=== PATIENT | male | born 1960 | race Caucasian/White ===

== ENCOUNTER 2020-09-11 12:21 | Inpatient (IN) | payer MEDICARE, OTHER ==
[~2020-09-11] VITALS: Ht 177.8 cm; Wt 69.9 kg
--- NOTE | 2020-09-11 12:30 | NUR ---
THE PATIENT IS BIB PA FROM [facility] PRIOR TO GPS ADMISSION. THE PATIENT IS ALERT AND ORIENTED TO SELF. DENIES PAIN. IN ROOM AIR AND DENIES SOB. RESPIRATION REGULAR AND UNLABORED. THE PATIENT CAME WITH A HOLD DANGER TO SELF AND GD. SAFETY MEAUSRES TAKEN. WILL CONTINUE TO MONITOR THE PATIENT.
--- NOTE | 2020-09-11 12:43 | NUR ---
ROOM 215-2
[2020-09-11 12:45] LABS: BASOPHILS # (AUTO) 0.1 K/uL (0.0-0.2); BASOPHILS % (AUTO) 0.5 % (0.0-2.0); EOSINOPHILS % (AUTO) 1.9 % (0.0-6.0); HEMATOCRIT 41 % (39-51); HEMOGLOBIN 13.3 g/dL (13.5-17.5); LYMPHOCYTES # (AUTO) 2.6 K/uL (0.8-4.8); LYMPHOCYTES % (AUTO) 22.3 % (20.0-44.0); MEAN CORPUSCULAR HGB CONC 33 g/dl (31.0-36.0); MEAN CORPUSCULAR VOLUME 95 fL (80-96); MONOCYTES # (AUTO) 0.7 K/uL (0.1-1.30); MONOCYTES % (AUTO) 6.1 % (2.0-12.0); NEUTROPHILS # (AUTO) 8.1 K/uL (1.8-8.9); NEUTROPHILS % (AUTO) 69.2 % (43.0-81.0); PLATELET COUNT (AUTO) 448 K/uL (150-450); RED BLOOD CELL COUNT(AUTO) 4.31 MIL/uL (4.5-6.0); WHITE BLOOD COUNT (AUTO) 11.7 K/uL (4.3-11.0)
[2020-09-11 12:51] LABS: CALCIUM, SERUM 8.8 mg/dL (8.5-10.1); CARBON DIOXIDE 31 mmol/L (21-32); CHLORIDE 102 mmol/L (98-107); CREATININE 0.8 mg/dL (0.6-1.3); GLUCOSE 106 mg/dL (74-106); POTASSIUM 4.4 mmol/L (3.5-5.1); SODIUM SERUM 138 mmol/L (136-145); UREA NITROGEN, BLOOD 15 mg/dL (7-18)
[2020-09-11 12:57] LABS: ACETAMINOPHEN 0 ug/ml (10-30); ALANINE AMINOTRANSFERASE 34 U/L (12-78); ALBUMIN 3.2 g/dL (3.4-5.0); ALCOHOL, BLOOD < 3 mg/dL (0-0); ALKALINE PHOSPHATASE 59 U/L (46-116); ASPARTATE AMINOTRANSFERASE 19 U/L (15-37); BILIRUBIN,TOTAL 0.1 mg/dL (0.2-1.0); TOTAL PROTEIN, SERUM 7.1 g/dL (6.4-8.2)
[2020-09-11] MEDS ORDERED: OLANZAPINE 10 MG VIAL IM ONE ×2 (12:58→13:00)
--- NOTE | 2020-09-11 13:09 | NUR ---
URINE COLLECTED AND SENT TO THE LAB
[2020-09-11] MEDS ORDERED: OLAN5TAB3 PO (13:33)
[2020-09-11] MEDS ORDERED: OLAN15TA3 PO (13:33)
[2020-09-11] MEDS ORDERED: DIVA500T2 PO ×2 (13:33)
[2020-09-11 13:36] LABS: BILIRUBIN,URINE Negative (NEGATIVE); COLOR,URINE YELLOW (YELLOW); LEUKOCYTE ESTERASE ,URINE Negative (NEGATIVE); NITRITE, URINE Negative (NEGATIVE); PH,URINE 7.5 (5.0-8.0); PROTEIN,URINE Negative (NEGATIVE); UGLUCOSE Negative (NEGATIVE); UROBILINOGEN,URINE 0.2 EU/dL (0.2)
[2020-09-11 13:38] LABS: BACTERIA,URINE Rare /HPF (None Seen); RBC,URINE 0-2 /HPF (0-2); SQUAMOUS EPITHELIAL CELL,UR Rare /HPF (None Seen); WBC,URINE 0-2 /HPF (0-3)
--- NOTE | 2020-09-11 14:20 | NUR ---
REPORT GIVEN TO NURSE ISABEL
[2020-09-11] MEDS ORDERED: NA P133E RC (15:00)
[2020-09-11] MEDS ORDERED: BISA10SU11 RC (15:00)
[2020-09-11] MEDS ORDERED: DOCU-141 PO (15:00)
[2020-09-11] MEDS ORDERED: ACET325T53 PO (15:00)
[2020-09-11] MEDS ORDERED: RISP2TAB85 PO (15:00)
[2020-09-11] MEDS ORDERED: MAGN400O6 PO (15:00)
[2020-09-11] MEDS ORDERED: OXCA600T8 PO (15:00)
--- NOTE | 2020-09-11 15:02 | NUR ---
THE PATIENT IS TRANSFERED TO GPS IN STABLE CONDITION AND PER POLICY.
--- NOTE | 2020-09-11 15:30 | NUR ---
GPS ADMISSION NOTE: RECEIVED MALE FROM [facility] TO [facility]. PATIENT ARRIVED ON THIS UNIT AT 1500 WITH 2 EMT ESCORT. 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 THE 5150 WAS REVIEWED AND THE DOCUMENTATION IN THE 5150 HOLD APPEARS TO REFLECT THE PRESENTATION OF THE PATIENT. UPON FACE TO FACE ASSESSMENT PATIENT IS A/OX2, HAS NO S/S OR COMPLAINTS OF PAIN. PATIENT BREATHING IS UNLABORED WITH EQUAL RISE AND FALL OF THE CHEST, VSS. PATIENT UNPREDICTABLE, EASILY AGITATED, COMBATIVE TOWARD STAFF,UNABLE TO CONTROL BEHAVIOR . PATIENT DISHEVELED, UNKEPT REFUSED TO SHOWER . PATIENT IS NOTED TO BEING DELUSIONAL, DISORGANIZED, TALKING TO SELF , AGGRESSIVE . PATIENT DENIES SUICIDE IDEATIONS AND HOMICIDAL IDEATIONS AT THIS TIME. PATIENT IS UNDER THE PSYCHIATRIC CARE OF DR. NORMAN AND THE MEDICAL CARE OF DR POZO PATIENT BELONGINGS WERE INVENTORIED AND CHECKED FOR CONTRABAND. PATIENT ADVANCED DIRECTIVES PREFERENCE, IMMUNIZATIONS QUESTIONER COMPLETED. SKIN ASSESSMENT DONE , PICTURE PLACED IN THE CHART WOUND CONSULT ORDERED .PATIENTS RIGHTS HANDBOOK, AND ALSO REFUSED TO SIGNS ALL PAPER WORK. MRSA DONE PATIENT ORIENTATED TO ROOM, FLOOR, AND STAFF WITH ALL QUESTIONS ANSWERED. PATIENT EDUCATED ON THE USE OF THE CALL VELAZQUEZ. PATIENT BED SIDE RAILS ARE UP X 2 FOR SAFETY. PATIENT BED IS LOCKED, LOW AND I WILL CONTINUE TO MONITOR THIS PATIENT Q 15 MIN WITH THE HELP OF STAFF TO MAINTAIN SAFETY.
[2020-09-11] MEDS ORDERED: OLANZAPINE 10 MG VIAL IM STA (15:54)
[2020-09-11 16:00] VITALS: BP 120/70
[2020-09-11] MEDS ORDERED: ACETAMINOPHEN 325 MG TABLET PO PRN (16:00)
[2020-09-11] MEDS ORDERED: MAG HYDROX/AL HYDROX/SIMETH 30 ML UDC PO PRN (16:00)
[2020-09-11] MEDS ORDERED: TEMAZEPAM 7.5 MG CAPSULE PO PRN ×2 (16:00)
[2020-09-11] MEDS ORDERED: BLOOD SUGAR DIAGNOSTIC 1 EACH STRIP IN ONE (16:00)
[2020-09-11] MEDS ORDERED: LORAZEPAM 0.5 MG TABLET PO PRN ×2 (16:00)
[2020-09-11] MEDS ORDERED: MAGNESIUM HYDROXIDE 30 ML UDC PO PRN (16:00)
--- NOTE | 2020-09-11 16:04 | NUR ---
RN NOTE- PT POSTURING, PUNCHING AT THE AIR, MAKING FISTS AT OTHER OPTS AND STAFF. DR NORMAN ORDERED ZYPREXA 10 MG IM STAT. COMPLIED Addendum: 09/11/20 at 1610 by MAAME SÁNCHEZ RN PT AGREED TO EMERGENCY ZYPREXA IM . COMPLIED W ADMINISTRATION
[2020-09-11 16:36] VITALS: BP 120/70
--- NOTE | 2020-09-11 17:37 | NUR ---
RN NOTE- PT PUNCHING AT AIR POSTURING YELLING AND BEING DISRUPTIVE. PT PSYCHOTIC. ATIVAN [address] NORMAN AWARE.
--- NOTE | 2020-09-11 17:39 | NUR ---
RN NOTE- DR NORMAN PLACING PT ON 1:1 STAFFING FOR ESCALATING AGGRESSION AND UNPREDICTABLE BEHAVIOR AND PROPENSITY TO VIOLENCE. HOUSE SUP NOTIFIED. PT IN BED IN ROOM. MONITORING
--- NOTE | 2020-09-11 18:38 | NUR ---
RN NOTE- INTERACTING W PT ON 1:1 WITH THIS RN. PT CALMER. NOTED THAT PT SEEMS CALMER WITH ATTENTION AND COMPANY/ INTERACTION BUT ONCE DISENGAGED, PT BEGINS TO BE INTERNALLY PREOCCUPIED AND RESPONDING. PT GETS AGITATED. HOUSE SUP STATED NO 1:1 STAFFING AVAILABLE. WE MOVED PT TO ROOM BY HIMSELF BESIDE NURSING STATION. PSYCHIATRIST NOTIFIED OF STAFFING AND ROOM CHANGE
[2020-09-11 20:17] VITALS: BP 140/80
[2020-09-12 07:32] LABS: ALBUMIN 3.2 g/dL (3.4-5.0); BILIRUBIN,TOTAL 0.2 mg/dL (0.2-1.0); CALCIUM, SERUM 8.9 mg/dL (8.5-10.1); CREATININE 0.6 mg/dL (0.6-1.3); POTASSIUM 4.2 mmol/L (3.5-5.1); TOTAL PROTEIN, SERUM 7.1 g/dL (6.4-8.2)
[2020-09-12 07:33] LABS: CHOLESTEROL 161 mg/dL (<200); HDL CHOLESTEROL 46 mg/dL (40-60); LDL 96 mg/dL (0-99); TRIGLYCERIDES 70 mg/dL (30-150)
[2020-09-12 08:00] VITALS: BP 120/73
--- NOTE | 2020-09-12 09:00 | NUR ---
RN NOTE - Ativan given PRN for anxiety and agitation, sitter is with patient.
[2020-09-12] MEDS: LORAZEPAM 0.5 MG TABLET PO PRN (09:04)
[2020-09-12] MEDS ORDERED: NA PHOS,M-B/NA PHOS,DI-BA 1 EA ENEMA RC PRN (14:00)
[2020-09-12] MEDS ORDERED: BISACODYL SUPP (10 MG) 10 MG/SUPP.RECT SUPP.RECT RC PRN (14:00)
[2020-09-12] MEDS ORDERED: DIVALPROEX SODIUM 500 MG TABLET.DR PO SCH ×2 (14:00→22:00)
[2020-09-12] MEDS ORDERED: MAGNESIUM HYDROXIDE 30 ML UDC PO PRN (14:00)
[2020-09-12] MEDS ORDERED: ACETAMINOPHEN 325 MG TABLET PO PRN (14:00)
--- NOTE | 2020-09-12 14:34 | NUR ---
RN NOTE - Per Dr. Russo, do not give depakote to patient d/t history of adverse rxn.
[2020-09-12] MEDS: OXCARBAZEPINE 150 MG TABLET PO SCH (14:53)
[2020-09-12] MEDS: OLANZAPINE 10 MG TABLET PO SCH (14:53)
--- NOTE | 2020-09-12 15:34 | NUR ---
Pt. is calm and cooperative at this time. Pt. seen by Dr. Russo and compliant on meds, 1:1 order discontinued.
[2020-09-12 16:00] VITALS: BP 105/59
[2020-09-12] MEDS ORDERED: OLANZAPINE 10 MG TABLET PO SCH (17:00)
[2020-09-12] MEDS ORDERED: OXCARBAZEPINE 150 MG TABLET PO SCH (17:00)
[2020-09-12 20:56] VITALS: BP 109/58
[2020-09-12] MEDS: DOCUSATE SODIUM 100 MG CAPSULE PO SCH (21:00)
--- NOTE | 2020-09-12 21:03 | NUR ---
GPS RN NOTES PATIENT REFUSED COLACE AT THIS TIME.
--- NOTE | 2020-09-13 06:15 | NUR ---
GPS RN CLOSING NOTE PATIENT IN BED, A/OX3. PATIENT CHANGED INTO HIS OWN CLOTHES. NO S/S OF DISTRESS. NO C/O PAIN NADER. ALL NEEDS ATTENDED. AMBULATES BY HIMSELF. SAFETY KEPT THE WHOLE SHIFT. DID NOT REPORT ANY SUICIDAL IDEATION OR HOMICIDAL IDEATION. NO SIGNIFICANT CHANGE SINCE LAST SHIFT. WILL ENDORSE CARE TO MORNING RN.
[2020-09-13] MEDS: LORAZEPAM 0.5 MG TABLET PO PRN (06:23)
--- NOTE | 2020-09-13 06:25 | NUR ---
GPS RN NOTES PATIENT PACING AROUND. GIVEN ATIVAN PRN.
[2020-09-13] MEDS: OLANZAPINE 10 MG TABLET PO SCH ×3 (07:39→16:50)
[2020-09-13] MEDS: DOCUSATE SODIUM 100 MG CAPSULE PO SCH ×2 (07:39→20:13)
[2020-09-13] MEDS: OXCARBAZEPINE 150 MG TABLET PO SCH ×3 (07:40→16:50)
[2020-09-13 08:00] VITALS: BP 120/61
[2020-09-13] MEDS ORDERED: INVEGA SUSTENNA 234 MG IM ONE (10:00)
[2020-09-13 16:00] VITALS: BP 99/63
--- NOTE | 2020-09-13 20:00 | NUR ---
RN NOTES ALERT/ORIENTED X3, ROOM AIR, DENIES PAIN AT THIS TIME, WITHDRAWN, IRRITABLE, INDEPENDENT WITH ADLS, AMBULATORY, WILL CONTINUE TO MONITOR.
[2020-09-13 20:54] VITALS: BP 116/72
[2020-09-14 08:00] VITALS: BP 110/70
[2020-09-14] MEDS: DOCUSATE SODIUM 100 MG CAPSULE PO SCH ×2 (08:16→21:04)
[2020-09-14] MEDS: OXCARBAZEPINE 150 MG TABLET PO SCH ×3 (08:16→17:33)
[2020-09-14] MEDS: OLANZAPINE 10 MG TABLET PO SCH ×3 (08:17→17:33)
[2020-09-14 16:00] VITALS: BP 115/59
[2020-09-14 20:27] VITALS: BP 103/58
[2020-09-15 08:00] VITALS: BP 105/68
[2020-09-15] MEDS: DOCUSATE SODIUM 100 MG CAPSULE PO SCH ×2 (08:23→21:40)
[2020-09-15] MEDS: OLANZAPINE 10 MG TABLET PO SCH ×3 (08:23→16:03)
[2020-09-15] MEDS: OXCARBAZEPINE 150 MG TABLET PO SCH ×3 (08:23→16:03)
[2020-09-15 16:00] VITALS: BP 114/41
[2020-09-15 20:15] VITALS: BP 108/55
[2020-09-15 21:01] VITALS: BP 108/55
[2020-09-16 08:00] VITALS: BP 157/70
[2020-09-16] MEDS: OLANZAPINE 10 MG TABLET PO SCH ×3 (08:39→16:25)
[2020-09-16] MEDS: OXCARBAZEPINE 150 MG TABLET PO SCH ×3 (08:39→16:25)
[2020-09-16] MEDS: DOCUSATE SODIUM 100 MG CAPSULE PO SCH ×2 (08:39→21:22)
--- NOTE | 2020-09-16 09:00 | NUR ---
RN NOTE- ALERT ORIENTED TO PERSON PLACE, MED COMPLIANT RAMBLING SPEECH DIRECTABLE PACES
[2020-09-16 16:00] VITALS: BP 137/77
--- NOTE | 2020-09-16 19:56 | NUR ---
RN NOTE PATIENT C/O HEADACHE 05/22 & REQUESTED TO TAKE PAIN MEDICINE. PRN TYLENOL 650 MG PO ADMINISTERED. WILL CONTINUE TO MONITOR.
[2020-09-16 20:20] VITALS: BP 108/58
[2020-09-17 08:00] VITALS: BP 137/76
[2020-09-17] MEDS: OXCARBAZEPINE 150 MG TABLET PO SCH ×3 (08:13→17:20)
[2020-09-17] MEDS: DOCUSATE SODIUM 100 MG CAPSULE PO SCH ×2 (08:13→22:07)
[2020-09-17] MEDS: OLANZAPINE 10 MG TABLET PO SCH ×2 (08:13→17:20)
--- NOTE | 2020-09-17 09:00 | NUR ---
RN NOTE- PACING HALLS MUMBLING TO SELF, ALERT ORIENTED TO PERSON PLACE,DISORGANIZED MED COMPLIANT RAMBLING SPEECH DIRECTABLE
[2020-09-17] MEDS: LORAZEPAM 0.5 MG TABLET PO PRN (14:35)
--- NOTE | 2020-09-17 14:35 | NUR ---
RN NOTE- ANXIOUS, RESTLESSNESS PRESENT . ATIVAN 1 MG GIVEN
--- NOTE | 2020-09-17 14:45 | NUR ---
Probable Cause Hearing: Pts [phone] hold was upheld for grave disability.
[2020-09-17 16:00] VITALS: BP 152/79
[2020-09-17 20:27] VITALS: BP 133/76
[2020-09-18 08:00] VITALS: BP 128/59
[2020-09-18] MEDS: OLANZAPINE 10 MG TABLET PO SCH ×2 (09:16→18:18)
[2020-09-18] MEDS: DOCUSATE SODIUM 100 MG CAPSULE PO SCH ×2 (09:16→21:11)
[2020-09-18] MEDS: OXCARBAZEPINE 150 MG TABLET PO SCH ×3 (09:16→17:00)
--- NOTE | 2020-09-18 10:22 | NUR ---
Initial discharge plan: Pt is currently homeless and is unsure of where he would like to go upon discharge. SW will work with the pt and the MD regarding appropriate discharge planning. SW will form a safe and proper discharge.
[2020-09-18 16:09] VITALS: BP 132/65
--- NOTE | 2020-09-18 19:30 | NUR ---
GPS RN NOTE, RECEIVED PATIENT AWAKE AND IN BED, NO S/S OR COMPLAINTS OF PAIN AT THIS TIME. PATIENT IS DISPLAYING NO S/S OF APPARENT DISTRESS AT THIS TIME. PATIENT BREATHING IS UNLABORED WITH EQUAL RISE AND FALL OF THE CHEST. PATIENT IS ALERT AND ORIENTED X 1-2 ON ROOM AIR WITH A SPO2 98%. PATIENT IS COMPLIANT WITH MEDICATIONS, ANXIOUS, MAKES NEEDS KNOWN, DISORGANIZED, NEEDS REDIRECTION, AND IS COOPERATIVE. PATIENT DENIES SUICIDAL AND HOMICIDAL IDEATIONS AT THIS TIME. PATIENT ASSISTED WITH TURNING AND REPOSITIONING Q2HR AND PRN FOR COMFORT AND CIRCULATION. PATIENT HAS NO NEEDS AT THIS TIME. PATIENT EDUCATED ON THE USE OF THE CALL LIGHT. PATIENT BED SIDE RAILS UP X 2 FOR SAFETY. PATIENT BED IS LOCKED, LOW, WITH BED ALARM ON. WILL CONTINUE TO MONITOR THIS PATIENT Q15 MINUTES WITH THE HELP OF STAFF TO MAINTAIN SAFETY.
[2020-09-18 20:05] VITALS: BP 122/69
[2020-09-19 08:00] VITALS: BP 111/69
[2020-09-19] MEDS: OLANZAPINE 10 MG TABLET PO SCH ×2 (09:00→17:01)
[2020-09-19] MEDS: OXCARBAZEPINE 150 MG TABLET PO SCH ×3 (09:00→17:01)
[2020-09-19] MEDS: DOCUSATE SODIUM 100 MG CAPSULE PO SCH ×2 (09:00→21:11)
[2020-09-19 16:00] VITALS: BP 110/81
--- NOTE | 2020-09-19 19:30 | NUR ---
GPS RN NOTE, RECEIVED PATIENT AWAKE AND IN BED, NO S/S OR COMPLAINTS OF PAIN AT THIS TIME. PATIENT IS DISPLAYING NO S/S OF APPARENT DISTRESS AT THIS TIME. PATIENT BREATHING IS UNLABORED WITH EQUAL RISE AND FALL OF THE CHEST. PATIENT IS ALERT AND ORIENTED X 1-2 ON ROOM AIR WITH A SPO2 98%. PATIENT IS COMPLIANT WITH MEDICATIONS, ANXIOUS, MAKES NEEDS KNOWN, DISORGANIZED, PACING, NEEDS REDIRECTION, AND IS COOPERATIVE. PATIENT DENIES SUICIDAL AND HOMICIDAL IDEATIONS AT THIS TIME. PATIENT ASSISTED WITH TURNING AND REPOSITIONING Q2HR AND PRN FOR COMFORT AND CIRCULATION. PATIENT HAS NO NEEDS AT THIS TIME. PATIENT EDUCATED ON THE USE OF THE CALL LIGHT. PATIENT BED SIDE RAILS UP X 2 FOR SAFETY. PATIENT BED IS LOCKED, LOW, WITH BED ALARM ON. WILL CONTINUE TO MONITOR THIS PATIENT Q15 MINUTES WITH THE HELP OF STAFF TO MAINTAIN SAFETY.
[2020-09-19 20:14] VITALS: BP 131/51
[2020-09-20] MEDS: LORAZEPAM 0.5 MG TABLET PO PRN (02:51)
--- NOTE | 2020-09-20 02:51 | NUR ---
GPS RN NOTE, PATIENT HAS A COMPLAINT OF FEELING ANXIOUS AND IS REQUESTING ATIVAN AT THIS TIME. PATIENT VITAL SIGNS ARE STABLE. GAVE ATIVAN 1 MG PO Q6HR PRN ORDERED. WILL REASSESS FOR ANXIETY AND I WILL CONTINUE TO MONITOR THIS PATIENT WITH THE HELP OF STAFF.
[2020-09-20 08:00] VITALS: BP 112/61
[2020-09-20] MEDS: OLANZAPINE 10 MG TABLET PO SCH ×2 (08:12→16:02)
[2020-09-20] MEDS: DOCUSATE SODIUM 100 MG CAPSULE PO SCH ×2 (08:13→21:18)
[2020-09-20] MEDS: OXCARBAZEPINE 150 MG TABLET PO SCH ×3 (08:13→16:02)
--- NOTE | 2020-09-20 11:26 | NUR ---
SNF Referral: LIANG faxed a referral to [facility] with attn to Nguyen to the fax number: [phone].
--- NOTE | 2020-09-20 14:25 | NUR ---
SNF Contact: Bj ([phone]) from [facility] contacted the SW and stated that the pt was accepted to their facility.
[2020-09-20 15:53] VITALS: BP 106/76
[2020-09-20 20:25] VITALS: BP 128/72
[2020-09-20 20:27] VITALS: BP 128/72
--- NOTE | 2020-09-21 06:12 | NUR ---
awake at 5am pacing the hallway and mumbling to him self goes in and out of his room slept though the night only to go to the bathroom steadyon his legs
[2020-09-21 08:00] VITALS: BP 102/62
[2020-09-21] MEDS: OXCARBAZEPINE 150 MG TABLET PO SCH ×3 (08:01→16:15)
[2020-09-21] MEDS: DOCUSATE SODIUM 100 MG CAPSULE PO SCH ×2 (08:01→20:44)
[2020-09-21] MEDS: OLANZAPINE 10 MG TABLET PO SCH ×2 (08:01→16:16)
[2020-09-21 16:27] VITALS: BP 130/75
[2020-09-21 20:20] VITALS: BP 97/48
--- NOTE | 2020-09-22 06:50 | NUR ---
GPS RN NOTES: PATIENT IS AWAKE, A/O X2. CURRENTLY PACING IN HALLWAY. SLEPT 7 HR THIS SHIFT. COMPLIANT WITH MEDICATION THIS SHIFT. NO S/S OF DISTRESS. RESPIRATION EVEN AND UNLABORED WITH EQUAL RISE AND FALL OF THE CHEST ON ROOM AIR. ALL PATIENT CARE NEEDS HAVE BEEN MET ANTICIPATED. WILL CONTINUE TO MONITOR FOR SAFETY, MOOD, AND BEHAVIOR AND ENDORSE TO AM SHIFT.
[2020-09-22 08:00] VITALS: BP 102/64
[2020-09-22] MEDS: OXCARBAZEPINE 150 MG TABLET PO SCH ×4 (08:01→20:56)
[2020-09-22] MEDS: DOCUSATE SODIUM 100 MG CAPSULE PO SCH ×2 (08:02→20:56)
[2020-09-22] MEDS: OLANZAPINE 10 MG TABLET PO SCH ×2 (08:02→16:54)
[2020-09-22 16:00] VITALS: BP 106/57
[2020-09-22 20:00] VITALS: BP 112/71
[2020-09-23 08:00] VITALS: BP 118/61
[2020-09-23] MEDS: OLANZAPINE 10 MG TABLET PO SCH ×2 (08:29→16:39)
[2020-09-23] MEDS: OXCARBAZEPINE 150 MG TABLET PO SCH ×4 (08:29→21:51)
[2020-09-23] MEDS: DOCUSATE SODIUM 100 MG CAPSULE PO SCH ×2 (08:29→21:51)
[2020-09-23] MEDS: LORAZEPAM 0.5 MG TABLET PO PRN (08:47)
--- NOTE | 2020-09-23 08:50 | NUR ---
N NOTE: ANXIOUS, RESTLESSNESS PRESENT . ATIVAN 1 MG GIVEN
--- NOTE | 2020-09-23 08:55 | NUR ---
Point of Contact: LIANG returned a call from pts casework supervisor Korin from [facility] ([phone]). SW was unable to speak with clerk checker and left a voicemail. LIANG will follow up with casework supervisor at a later time.
[2020-09-23 16:00] VITALS: BP 100/54
[2020-09-23 20:00] VITALS: BP 102/57
--- NOTE | 2020-09-24 06:32 | NUR ---
RN CLOSING NOTES PATIENT PACING IN THE HALLWAYS AND MUMBLING TO SELF, BUT NO AGITATION OR AGGRESSION NOTED. NO S/S OF DISTRESS OR SOB NOTED, BREATHING EVEN AND UNLABORED. NO COMPLAINTS OF PAIN AT THIS TIME. PT DENIED SI/HI THROUGHOUT SHIFT. PATIENT COMPLIANT WITH MEDICATION. MEDICATIONS GIVEN ORDERED. PATIENT NEEDS MET THROUGHOUT SHIFT. SAFETY MEASURES IN PLACE, BED LOCKED IN LOW POSITION, SIDE RAILS UP X 2, SAFETY CHECKS Q15 MINS THROUGHOUT SHIFT. WILL ENDORSE TO DAY SHIFT NURSE FOR CONTINUITY OF CARE
--- NOTE | 2020-09-24 07:30 | NUR ---
received pt. this am alert and oriented x2,pacing in hallway,no distress,med compliant.
[2020-09-24 08:00] VITALS: BP 109/72
[2020-09-24] MEDS: DOCUSATE SODIUM 100 MG CAPSULE PO SCH (09:06)
[2020-09-24] MEDS: OLANZAPINE 10 MG TABLET PO SCH (09:07)
[2020-09-24] MEDS: OXCARBAZEPINE 150 MG TABLET PO SCH (09:07)
--- NOTE | 2020-09-24 09:10 | NUR ---
Discharge Note: Pt will be discharged to [facility] located at [address] [place] [address]; . Pt will be transported via [facility] at 12PM. There is no one to notify regarding pts discharge. Upon discharge, the pt appears to be in a dysphoric mood and presents with a distressed affect. Pt appears to be alert and oriented x4 (time, place, self, and situation). Pt denies both suicidal and homicidal ideation as well as auditory and visual hallucinations. LIANG provided patient with the 2019 [facility] Residential Program list. LIANG provided patient with a copy of the [facility] homeless directory which provides information on locations for hot meals, sack lunches, food pantries, and showers. LIANG provided an additional list of mental health clinics: [facility] [address] [place] [address] ([phone]); [facility] [address] [place] [address] ([phone]); a list of medical clinics; [facility] [address], [place]. [place], ; [facility] [address] [facility] LIANG Provided [facility] [address] [place] [address]: ([phone]). Patient was provided with a brief substance abuse intervention and referred to the following substance abuse programs: [facility] Substance Abuse Self-helpline ([phone]); [facility] [address] [place] [address] ([phone]); [facility] [address] [facility] [facility] [address] ([phone]); [facility] ([phone]); [facility] ([phone]); [facility] ([phone]); [facility] ([phone]). Pt will be under the care of her psychiatrist, Dr. Russo, located at [address], [place] [address]; and her production grader, Dr. García, located at [address], [place] [address]; . The homeless waiver, choice of vendor, and multidisciplinary exit care form was done, printed, signed, and given to the patient.
--- NOTE | 2020-09-24 12:20 | NUR ---
pt. ready for discharge.denies s/i,h/i or auditory hallucinations.report called to jose armando at facility.all belongings together,report to drivers.taken via ambulance to transferring facility.photo taken of resolving facial blemishes.
== END 2020-09-24 12:20 | DRG 885 ==
LOC: ER 12:44 → GPS 15:34
PROVIDERS: ADMIT Psychiatry & Neurology Psychosomatic Medicine; ATTEND Internal Medicine
DX: F25.0 Schizoaffective disorder, bipolar type (principal); E44.1 Mild protein-calorie malnutrition; F29 Unspecified psychosis not due to a substance or known physiological condition; F41.9 Anxiety disorder, unspecified; E11.9 Type 2 diabetes mellitus without complications; Z79.899 Other long term (current) drug therapy; G40.909 Epilepsy, unspecified, not intractable, without status epilepticus; F32.9 Major depressive disorder, single episode, unspecified; F17.200 Nicotine dependence, unspecified, uncomplicated; Z73.6 Limitation of activities due to disability; D72.829 Elevated white blood cell count, unspecified; G31.84 Mild cognitive impairment of uncertain or unknown etiology; Z59.0 Homelessness
CPT/HCPCS: 36415; 80048-TC; 80053-TC; 80061-TC; 80076-TC; 81001; 82962-TC; 84443-TC; 85025-TC; 87081-TC; G0480; J3490